=== PATIENT | male | born 1965 ===

== ENCOUNTER 2018-01-12 14:59 | Emergency (ER) | payer OTHER ==
[2018-01-12 15:58] VITALS: BMI 22.4
--- NOTE | 2018-01-12 16:12 | ED PDOC ---
Arrival/HPI - General Chief Complaint: Groin Pain Time Seen by Provider: 01/12/18 15:41 Historian: Patient - History of Present Illness Narrative History of Present Illness (Text): 01/12/18 16:04 52 year old male, with no significant past medical history, who presents to the emergency department complaining of rt groin pain x 4 days. Patient notes he was sitting on a park bench when he experienced intense rt groin pain when he got up. Patient notes the next day the pain was so bad he couldn't walk. Patient took a muscle relaxant, which helped. pPatient denies any fever, chills , chest pain, shortness of breath, nausea, vomiting, diarrhea, back pain, neck pain, headache, dizziness, or any other complaints. Time/Duration: < week (4 days) Symptom Onset: Sudden Symptom Course: Unchanged Activities at Onset: Light Context: Sitting Past Medical History - Provider Review Nursing Documentation Reviewed: Yes - Infectious Disease Hx of Infectious Diseases: None - Pulmonary Other/Comment: h/o lung tumor - Psychiatric Hx Psychophysiologic Disorder: No Hx Substance Use: Yes - Surgical History Other/Comment: L lung tumor removal - Anesthesia Hx Anesthesia: Yes Hx Anesthesia Reactions: No Hx Malignant Hyperthermia: No Family/Social History - Physician Review Nursing Documentation Reviewed: Yes Family/Social History: Unknown Family HX Smoking Status: Never Smoked Hx Alcohol Use: No Hx Substance Use: Yes Substance used: marijuana Allergies/Home Meds Allergies/Adverse Reactions: Allergies No Known Allergies Allergy (Verified 01/12/18 15:54) Review of Systems - Physician Review All systems were reviewed & negative as marked: Yes - Review of Systems Constitutional: Normal Eyes: Normal ENT: Normal Respiratory: Normal. absent: SOB, Cough Cardiovascular: Normal. absent: Chest Pain Gastrointestinal: Normal. absent: Abdominal Pain Genitourinary Male: Normal. absent: Dysuria, Frequency Musculoskeletal: Other (rt groin pain ). absent: Back Pain, Neck Pain Skin: Normal. absent: Rash Neurological: Normal. absent: Headache, Dizziness Endocrine: Normal Hemo/Lymphatic: Normal Psychiatric: Normal Physical Exam Vital Signs Temp Pulse Resp BP Pulse Ox 01/12/18 16:13 100.9 F H 84 18 134/82 96 - Systems Exam Head: Present: Atraumatic, Normocephalic Pupils: Present: PERRL Extroacular Muscles: Present: EOMI Conjunctiva: Present: Normal Mouth: Present: Moist Mucous Membranes Neck: Present: Normal Range of Motion Respiratory/Chest: Present: Clear to Auscultation, Good Air Exchange. No: Respiratory Distress, Accessory Muscle Use Cardiovascular: Present: Regular Rate and Rhythm, Normal S1, S2. No: Murmurs Abdomen: No: Tenderness, Distention, Peritoneal Signs Back: Present: Normal Inspection Upper Extremity: Present: Normal Inspection. No: Cyanosis, Edema Lower Extremity: Present: Tenderness (tenderness to crease of rt groin where rt side strap muscles attach to pelvis). No: Edema Neurological: Present: GCS=15, CN II-XII Intact, Speech Normal Skin: Present: Warm, Dry, Normal Color. No: Rashes Psychiatric: Present: Alert, Oriented x 3, Normal Insight, Normal Concentration Medical Decision Making ED Course and Treatment: 01/12/18 16:14 Impression: 52 year old male presents to the emergency department complaining of rt sided groin pain. Plan: -- Abd/Pelvis CT -- Toradol -- Labs -- Urine Culture -- UA -- Reassess and disposition Progress Notes: 01/12/18 18:11 CT abd/pelvis reviewed, shows: LOWER THORAX: Unremarkable. LIVER: Unremarkable. No gross lesion or ductal dilatation. GALLBLADDER AND BILE DUCTS: Unremarkable. PANCREAS: Unremarkable. No gross lesion or ductal dilatation. SPLEEN: Unremarkable. ADRENALS: Unremarkable. No mass. KIDNEYS AND URETERS: Unremarkable. No hydronephrosis. No solid mass. VASCULATURE: Unremarkable. No aortic aneurysm. BOWEL: Unremarkable. No obstruction. No gross mural thickening. APPENDIX: Unremarkable. Normal appendix. PERITONEUM: Unremarkable. No free fluid. No free air. LYMPH NODES: Unremarkable. No enlarged lymph nodes. BLADDER: Unremarkable. REPRODUCTIVE: Unremarkable. BONES: No acute fracture. OTHER FINDINGS: None. IMPRESSION: Unremarkable non contrast enhanced CT of the abdomen and pelvis.No significant or acute findings to account for/ r - Lab Interpretations Lab Results: 01/12/18 16:50 01/12/18 16:50 Lab Results 01/12/18 18:02: Urine Color Light yellow, Urine Appearance Clear, Urine pH 6.0, Ur Specific [place] 1.020, Urine Protein Negative, Urine Glucose (UA) Negative, Urine Ketones 15 H, Urine Blood Negative, Urine Nitrate Negative, Urine Bilirubin Negative, Urine Urobilinogen 0.2, Ur Leukocyte Esterase Negative 01/12/18 16:50: Sodium 141, Potassium 4.2, Chloride 100, Carbon Dioxide 28, Anion Gap 16, BUN 9, Creatinine 0.7 L, Est GFR ( Amer) > 60, Est GFR (Non -Af Amer) > 60, Random Glucose 88, Calcium 8.8, Total Bilirubin 1.1, AST 21, ALT 29, Alkaline Phosphatase 45, Total Protein 7.1, Albumin 4.0, Globulin 3.1, Albumin/Globulin Ratio 1.3, Lipase 26 01/12/18 16:50: PT 13.2 H, INR 1.15 H 01/12/18 16:50: WBC 15.0 H, RBC 4.48, Hgb 13.0 L, Hct 37.9 L, MCV 84.6, MCH 29.0 , MCHC 34.3, RDW 12.9, Plt Count 251, MPV 11.0, Gran % 73.4 H, Lymph % (Auto) 13.9 L, Benson % (Auto) 12.5 H, Eos % (Auto) 0.1 L, Baso % (Auto) 0.1, Gran # 11.02 H, Lymph # (Auto) 2.1, Benson # (Auto) 1.9 H, Eos # (Auto) 0.0, Baso # (Auto ) 0.01 - RAD Interpretation Radiology Orders: 01/12/18 16:15 ABD & PELVIS W/O PO OR IV CONT [CT] Stat - Medication Orders Current Medication Orders: Discontinued Medications Ketorolac Tromethamine (Toradol) 30 mg IVP STAT STA Stop: 01/12/18 16:16 Last Admin: 01/12/18 17:06 Dose: 30 mg MAR Pain Assessment Document 01/12/18 17:06 GMD (Rec: 01/12/18 17:06 [facility] [id number]) Pain Reassessment Is this a pain reassessment? No IVP Administration Document 01/12/18 17:06 GMD (Rec: 01/12/18 17:06 [facility] [id number]) Charges for Administration # of IVP Administrations 1 Ketorolac Tromethamine (Toradol) 60 mg IM ONCE ONE Stop: 01/12/18 16:31 - Scribe Statement The provider has reviewed the documentation as recorded by the Scribe Mary Sanderlin All medical record entries made by the Jere were at my direction and personally dictated by me. I have reviewed the chart and agree that the record accurately reflects my personal performance of the history, physical exam, medical decision making, and the department course for this patient. I have also personally directed, reviewed, and agree with the discharge instructions and disposition. Disposition/Present on Arrival - Present on Arrival History of DVT/PE: No History of Uncontrolled Diabetes: No Urinary Catheter: No History of Decub. Ulcer: No History Surgical Site Infection Following: None - Disposition Diagnosis: Strain of right inguinal muscle, Strain of muscle of right groin region Disposition: HOME/ ROUTINE Patient Problems: Current Active Problems Problem Status Onset Strain of right inguinal muscle Acute Strain of muscle of right groin region Acute Condition: GOOD Discharge Instructions (ExitCare): Muscle Strain (DC), Groin Strain (DC) Print Language: ICELANDIC Additional Instructions: Rodríguez - You pulled the muscle in your groin. Rest, off work til , follow up with orthopedics this week. Best- Dr. Feliz Mann Prescriptions: Ibuprofen [Motrin Tab] 800 mg PO TID #30 tab Referrals: Shine Encarnacion DO [Staff Provider] - Follow up with primary Forms: [employer] (M[place]otho), WORK NOTE
[2018-01-12 16:14] VITALS: RESP 18
[2018-01-12 17:27] LABS: ALB/GLOB RATIO 1.3 (1.1-1.8); ALT/SGPT 29 U/L (7-56); AST/SGOT 21 U/L (17-59); BLOOD UREA NITROGEN 9 mg/dL (7-21); CALCIUM 8.8 mg/dL (8.4-10.5); GFR AFRICAN-AMERICAN > 60; GFR NON-AFRICAN AMERICAN > 60; LIPASE 26 U/L (23-300)
[2018-01-12 17:32] LABS: BASO # 0.01 K/mm3 (0.0-2.0); BASO % 0.1 % (0.0-3.0); EOS % 0.1 % (1.5-5.0); GRAN # 11.02 (1.4-6.5); GRAN % 73.4 % (50.0-68.0); LYMPH # 2.1 (1.2-3.4); LYMPH % 13.9 % (22.0-35.0); MEAN CELL VOLUME 84.6 fl (80.0-105.0); MEAN CORPUSCULAR HGB CONC 34.3 g/dl (31.0-37.0); MONO # 1.9 (0.1-0.6); MONO % 12.5 % (1.0-6.0); RBC 4.48 10^6/uL (3.5-6.1); RED CELL DISTRIBUTION WIDTH 12.9 % (11.5-14.5)
--- NOTE | 2018-01-12 17:48 | CT ---
Date of service: 01/12/2018 PROCEDURE: CT Abdomen and Pelvis without intravenous contrast HISTORY: Right Groin Pain COMPARISON: None. TECHNIQUE: Unenhanced study. Neither oral nor intravenous contrast administered. Radiation dose: Total exam DLP = 287.36 mGy-cm. This CT exam was performed using one or more of the following dose reduction techniques: Automated exposure control, adjustment of the mA and/or kV according to patient size, and/or use of iterative reconstruction technique. FINDINGS: LOWER THORAX: Unremarkable. LIVER: Unremarkable. No gross lesion or ductal dilatation. GALLBLADDER AND BILE DUCTS: Unremarkable. PANCREAS: Unremarkable. No gross lesion or ductal dilatation. SPLEEN: Unremarkable. ADRENALS: Unremarkable. No mass. KIDNEYS AND URETERS: Unremarkable. No hydronephrosis. No solid mass. VASCULATURE: Unremarkable. No aortic aneurysm. BOWEL: Unremarkable. No obstruction. No gross mural thickening. APPENDIX: Unremarkable. Normal appendix. PERITONEUM: Unremarkable. No free fluid. No free air. LYMPH NODES: Unremarkable. No enlarged lymph nodes. BLADDER: Unremarkable. REPRODUCTIVE: Unremarkable. BONES: No acute fracture. OTHER FINDINGS: None. IMPRESSION: Unremarkable non contrast enhanced CT of the abdomen and pelvis.No significant or acute findings to account for/ related to the clinical presentation.
[2018-01-12 17:50] LABS: INR 1.15 (0.93-1.08); PROTHROMBIN TIME 13.2 SECONDS (9.4-12.5)
[2018-01-12 18:07] LABS: URINE BILIRUBIN NEGATIVE (NEGATIVE); URINE BLOOD NEGATIVE (NEGATIVE); URINE GLUCOSE (UA) NEGATIVE (NEGATIVE); URINE LEUKOCYTE ESTERASE NEGATIVE Leu/uL (NEGATIVE); URINE PROTEIN NEGATIVE mg/dL (<30 mg/dL); URINE UROBILINOGEN 0.2 E.U./dL (<1 E.U./dL)
[2018-01-12 18:08] LABS: URINE APPEARANCE CLEAR (CLEAR); URINE COLOR LIGHT YELLOW (YELLOW)
[2018-01-12 18:24] VITALS: O2SAT 98
[2018-01-12 19:25] VITALS: BP 126/78; PULSE 76; TEMP 98
== END 2018-01-12 19:24 | disposition home or self-care (01) ==
LOC: MERGE 14:59 → ED 14:59
DX: S39.011A Strain of muscle, fascia and tendon of abdomen, initial encounter (principal); X50.1XXA Overexertion from prolonged static or awkward postures, initial encounter; Y92.830 Public park as the place of occurrence of the external cause
CPT/HCPCS: 74176; 80053; 81003; 83690; 85025; 85610; 87086; 96374; 99283; J1885

== ENCOUNTER 2018-01-23 08:49 | Emergency (ER) | payer OTHER ==
[2018-01-23 08:49] VITALS: BMI 22.4
[2018-01-23] MEDS ORDERED: cefTRIAXone (Rocephin) 250 mg Inj IM STA (10:00)
--- NOTE | 2018-01-23 10:11 | ED PDOC ---
Arrival/HPI - General Chief Complaint: Male Genitourinary Time Seen by Provider: 01/23/18 09:51 Historian: Patient - History of Present Illness Narrative History of Present Illness (Text): 01/23/18 09:51 This 52 yo male presents to this ED c/o suprapubic muscle pain x 2 week. Patient stated he was seen in this ED x 2 weeks, and he was Dx. with groin pain. Patient had a normal cat scan of abdomen and pelvis, and normal labs during last ED visit. Patient stated he was seen by Dr. Murray, PMAnmol, who prescribed him UKN ABX. He stated he had a mild testicular pain x 2 days, which it has improved. Patient denies urinary symptoms, hematuria, rectal pain , fever, nausea, vomiting, abdominal pain, recent travel, recent trauma, or dizziness. No skin rash. Time/Duration: Other (see hpi) Context: Home Past Medical History - Provider Review Nursing Documentation Reviewed: Yes - Infectious Disease Hx of Infectious Diseases: None - Cardiac Hx Cardiac Disorders: No Hx Hypertension: No - Pulmonary Other/Comment: h/o lung tumor - Neurological HX Cerebrovascular Accident: No Hx Seizures: No - Hematological/Oncological Hx Cancer: No - Genitourinary/Gynecological Hx Sexually Transmitted Diseases: No - Psychiatric Hx Psychophysiologic Disorder: No Hx Substance Use: Yes (marijuana) - Surgical History Other/Comment: L lung tumor removal - Anesthesia Hx Anesthesia: No Family/Social History - Physician Review Nursing Documentation Reviewed: Yes Family/Social History: Other (noncontributory) Smoking Status: Current Some Days Smoker Hx Alcohol Use: No Hx Substance Use: Yes (marijuana) Substance used: heroin Allergies/Home Meds Allergies/Adverse Reactions: Allergies No Known Allergies Allergy (Verified 01/23/18 09:25) Review of Systems - Review of Systems Constitutional: Normal. absent: Fatigue, Weight Change, Fevers, Night Sweats Eyes: Normal ENT: Normal Respiratory: Normal Cardiovascular: Normal Gastrointestinal: Normal Genitourinary Male: Normal Musculoskeletal: Other (pubis pain) Skin: Normal Neurological: Normal Endocrine: Normal Hemo/Lymphatic: Normal Psychiatric: Normal Physical Exam Vital Signs Temp Pulse Resp BP Pulse Ox 01/23/18 09:21 98.4 F 82 19 113/79 97 Temperature: Afebrile Blood Pressure: Normal Pulse: Regular Respiratory Rate: Normal Appearance: Positive for: Well-Appearing, Non-Toxic, Comfortable Pain Distress: None Mental Status: Positive for: Alert and Oriented X 3 - Systems Exam Head: Present: Atraumatic, Normocephalic Pupils: Present: PERRL Extroacular Muscles: Present: EOMI Conjunctiva: Present: Normal Mouth: Present: Moist Mucous Membranes Neck: Present: Normal Range of Motion Respiratory/Chest: Present: Clear to Auscultation, Good Air Exchange. No: Respiratory Distress, Accessory Muscle Use Cardiovascular: Present: Regular Rate and Rhythm, Normal S1, S2. 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 No: Lesions, Penile Discharge, Testicle Tenderness, Penile Swelling, Masses, Erythema, Hernias, Testicle Swelling, Prostate Tenderness, Prostate Enlargement Back: Present: Normal Inspection Upper Extremity: Present: Normal Inspection, Normal ROM. No: Cyanosis, Edema Lower Extremity: Present: Normal Inspection. No: Edema Neurological: Present: GCS=15, CN II-XII Intact, Speech Normal Skin: Present: Warm, Dry, Normal Color. No: Rashes Psychiatric: Present: Alert, Oriented x 3, Normal Insight, Normal Concentration Medical Decision Making ED Course and Treatment: 01/23/18 11:29 Re-evaluation. Patient feels better. Discussed results and plan with patient who expresses understanding. All questions answered and there is agreement with the plan to discharge home with instructions. Patient stable for discharge. Return if symptoms persist or worsen. 01/23/18 11:37 Patient noted testicular pain x 2 days ago, but it has improved. I ordered GC/ Chlam, Rocephin, and azithromycin Re-evaluation Time: 11:29 Reassessment Condition: Re-examined, Improved - Lab Interpretations Lab Results: Lab Results 01/23/18 10:08: Urine Color Yellow, Urine Appearance Clear, Urine pH 6.0, Ur Specific [place] 1.020, Urine Protein Negative, Urine Glucose (UA) Negative, Urine Ketones Negative, Urine Blood Negative, Urine Nitrate Negative, Urine Bilirubin Negative, Urine Urobilinogen 0.2, Ur Leukocyte Esterase Negative I have reviewed the lab results: Yes Interpretation: No clinic. lab abnormalty - RAD Interpretation Narrative RAD Interpretations (Text): 01/23/18 11:34 FINDINGS: RIGHT TESTICLE: Measures 4.6 x 2.5 x 3.0 cm. Normal echotexture and flow. RIGHT EPIDIDYMIS: Epididymal head measures 0.6 x 0.9 x 1.2 cm. Grossly unremarkable appearance with normal flow. LEFT TESTICLE: Measures 4.5 x 1.9 x 2.9 cm. Normal echotexture and flow. There is a 2 mm cyst in the left testicle LEFT EPIDIDYMIS: Epididymal head measures 0.7 x 0.7 x 0.7 cm. Grossly unremarkable appearance with normal flow. HYDROCELE: Small bilateral hydroceles VARICOCELE: None. OTHER FINDINGS: None. IMPRESSION: No evidence of testicular torsion or inflammation Radiology Orders: 01/23/18 09:59 TESTES DUPLEX COMPLETE [US] Stat - Medication Orders Current Medication Orders: Discontinued Medications Azithromycin (Zithromax) 1,000 mg PO STAT STA PRN Reason: Protocol Stop: 01/23/18 10:02 Last Admin: 01/23/18 10:27 Dose: 1,000 mg Ceftriaxone Sodium (Rocephin) 250 mg IM STAT STA PRN Reason: Protocol Stop: 01/23/18 10:01 Last Admin: 01/23/18 10:27 Dose: 250 mg IM Administration Charges Document 01/23/18 10:27 EWO (Rec: 01/23/18 10:27 EWO [id number]) Injection Site MAR Injection Site Left Vastus Lateralis Charges for Administration # of IM Administrations 1 Disposition/Present on Arrival - Present on Arrival Any Indicators Present on Arrival: No History of DVT/PE: No History of Uncontrolled Diabetes: No Urinary Catheter: No History of Decub. Ulcer: No History Surgical Site Infection Following: None - Disposition Have Diagnosis and Disposition been Completed?: Yes Diagnosis: Musculoskeletal pain Disposition: HOME/ ROUTINE Disposition Time: 11:35 Patient Plan: Discharge Condition: IMPROVED Discharge Instructions (ExitCare): Muscle and Bone Pain (DC) Additional Instructions: Call private doctor for follow up visit in 1-2 days. Take medication as instructed. Return to emergency if symptoms worsen. Prescriptions: Naproxen 500 mg PO BID PRN #20 tablet PRN Reason: Pain, Severe (8-10) Referrals: PCP,NO [Primary Care Provider] - Follow up with primary Forms: [employer] (Frisian)
[2018-01-23 10:14] LABS: URINE BILIRUBIN NEGATIVE (NEGATIVE); URINE BLOOD NEGATIVE (NEGATIVE); URINE GLUCOSE (UA) NEGATIVE (NEGATIVE); URINE LEUKOCYTE ESTERASE NEGATIVE Leu/uL (NEGATIVE); URINE PROTEIN NEGATIVE mg/dL (<30 mg/dL); URINE UROBILINOGEN 0.2 E.U./dL (<1 E.U./dL)
[2018-01-23 10:15] LABS: URINE APPEARANCE CLEAR (CLEAR); URINE COLOR YELLOW (YELLOW)
--- NOTE | 2018-01-23 11:05 | US ---
Date of service: 01/23/2018 HISTORY: pain TECHNIQUE: Realtime sonography through the scrotum with color and doppler flow. COMPARISON: None Available. FINDINGS: RIGHT TESTICLE: Measures 4.6 x 2.5 x 3.0 cm. Normal echotexture and flow. RIGHT EPIDIDYMIS: Epididymal head measures 0.6 x 0.9 x 1.2 cm. Grossly unremarkable appearance with normal flow. LEFT TESTICLE: Measures 4.5 x 1.9 x 2.9 cm. Normal echotexture and flow. There is a 2 mm cyst in the left testicle LEFT EPIDIDYMIS: Epididymal head measures 0.7 x 0.7 x 0.7 cm. Grossly unremarkable appearance with normal flow. HYDROCELE: Small bilateral hydroceles VARICOCELE: None. OTHER FINDINGS: None. IMPRESSION: No evidence of testicular torsion or inflammation
[2018-01-23] MEDS ORDERED: Naproxen 550 mg Tab PO STA (11:23)
[2018-01-23 11:36] VITALS: RESP 18; O2SAT 98
[2018-01-23 11:47] VITALS: BP 126/79; PULSE 72; TEMP 98.2
== END 2018-01-23 11:45 | disposition home or self-care (01) ==
LOC: ED 08:49
DX: M79.1 Myalgia (principal)
CPT/HCPCS: 81003; 87491; 87591; 93975; 96372; 99283; J0696